=== PATIENT | male | born 1985 | race Two or more races ===

== ENCOUNTER 2022-09-27 03:03 | Emergency (ER) | payer OTHER ==
[~2022-09-27] VITALS: Ht 180.3 cm; Wt 84.1 kg
[~2022-09-27 03:03] MED LIST: GABA-1216 PO
[2022-09-27] MEDS ORDERED: IPRATROPIUM BROMIDE 0.5 MG/2.5 ML NEB SOLUTION NEB ONE (03:15)
[2022-09-27] MEDS ORDERED: MethylPREDNISolone SOD SUCC 125 MG/2 ML VIAL IVP ONE (03:15)
[2022-09-27] MEDS ORDERED: ALBUTEROL SULFATE 2.5 MG/0.5 ML NEB SOLUTION NEB ONE ×2 (03:15→04:45)
[2022-09-27 03:53] LABS: COVID AG,FIA SOURCE NASOPHARYNGEAL
[2022-09-27 03:56] LABS: BASOPHILS % (AUTO) 0.9 % (0.0-2.0); EOSINOPHILS % (AUTO) 8.4 % (1.0-6.0); HEMOGLOBIN 14.7 g/dL (13.5-17.5); LYMPHOCYTES % (AUTO) 33.9 % (22.0-44.0); MEAN CORPUSCULAR HGB CONC 34.1 G/dL (31.0-37.0); MEAN CORPUSCULAR VOLUME 88 fL (80-100); MONOCYTES # (AUTO) 0.6 K/uL (0.1-1.0); MONOCYTES % (AUTO) 6.2 % (2.0-9.0); NEUTROPHILS # (AUTO) 4.5 K/uL (1.8-7.7); NEUTROPHILS % (AUTO) 50.6 % (40.0-70.0); PLATELET COUNT (AUTO) 153 K/uL (150-450); RED BLOOD CELL COUNT(AUTO) 4.89 MIL/uL (4.50-5.90); RED CELL DISTRIBUTION WIDTH 12.3 % (11.5-14.5)
[2022-09-27 04:07] LABS: ANION GAP 10 mmol/L (8-16); CALCIUM, TOTAL 8.5 mg/dL (8.8-10.5); CARBON DIOXIDE 26 mmol/L (22-29); CHLORIDE 104 mmol/L (98-107); CREATININE 0.84 mg/dL (0.60-1.30); GLOMERULAR FILTR. RATE CALC > 60 mL/min (>60); GLUCOSE,RANDOM 102 mg/dL (70-110); POTASSIUM 3.9 mmol/L (3.5-5.1); SODIUM SERUM 140 mmol/L (136-145); UREA NITROGEN, BLOOD 13 mg/dL (7-18)
[2022-09-27 04:14] LABS: INFLUENZA TYPE A NEGATIVE FOR TYPE A (NEGATIVE); INFLUENZA TYPE B NEGATIVE FOR TYPE B (NEGATIVE)
[2022-09-27 04:32] LABS: ALANINE AMINOTRANSFERASE 23 U/L (12-78); ALBUMIN 3.9 g/dL (3.4-5.0); ALKALINE PHOSPHATASE 60 U/L (46-116); ASPARTATE AMINOTRANSFERASE 24 U/L (15-37); BILIRUBIN,TOTAL 1.3 mg/dL (0.1-1.0); CREATINE KINASE, TOTAL ONLY 120 U/L (39-308); PHOSPHORUS 3.5 mg/dL (2.5-4.9); TOTAL PROTEIN, SERUM 7.3 g/dL (6.4-8.2)
[2022-09-27 04:41] LABS: B-TYPE NATRIURETIC PEPTIDE 12 pg/mL (0-100)
[2022-09-27] MEDS ORDERED: MAGNESIUM SULFATE 2 GM in DEXTROSE 5%-WATER 100 ML IV ONE (04:45)
[2022-09-27] MEDS ORDERED: MAGNESIUM SULFATE 2 GM/WATER 50 ML IV ONE (05:00)
[2022-09-27] MEDS ORDERED: PRED-554 PO (05:40)
[2022-09-27 06:22] VITALS: BP 145/80
[2022-09-29] MEDS ORDERED: PRED-554 PO (11:01)
[2022-09-29] MEDS ORDERED: ALBU8HFA IH (11:01)
[2022-09-29] MEDS ORDERED: DOXY-354 PO (11:01)
== END 2022-09-27 06:37 | disposition left against medical advice (07) ==
LOC: EMS 03:04
DX: J45.901 Unspecified asthma with (acute) exacerbation (principal); F41.9 Anxiety disorder, unspecified; F17.210 Nicotine dependence, cigarettes, uncomplicated; F12.90 Cannabis use, unspecified, uncomplicated; K29.70 Gastritis, unspecified, without bleeding; K44.9 Diaphragmatic hernia without obstruction or gangrene; Z90.49 Acquired absence of other specified parts of digestive tract; Z20.822 Contact with and (suspected) exposure to COVID-19
CPT/HCPCS: 99285; 96365; 71045; 96375; 87426; 80053; 82550; 83735; 83880; 84100; 84484; 85025; 87804; 36415; 93005; 94644; J2930; J3475; J7060; J7613

== ENCOUNTER 2023-06-30 12:11 | Emergency (ER) | payer OTHER ==
[~2023-06-30] VITALS: Ht 180.3 cm; Wt 85.0 kg
[~2023-06-30 12:11] MED LIST changes: +ALBU18HF12 IH; +DOXY-354 PO; +PRED-554 PO
[2023-06-30 12:12] VITALS: TEMP 98.3
[2023-06-30] MEDS ORDERED: APIX5TAB PO (12:22)
[2023-06-30] MEDS ORDERED: BECL10.6 IH (12:22)
[2023-06-30 12:50] VITALS: BP 132/89
[2023-06-30] MEDS ORDERED: IPRATROPIUM BROMIDE 0.5 MG/2.5 ML NEB SOLUTION NEB ONE (13:30)
[2023-06-30] MEDS ORDERED: ALBUTEROL SULFATE 2.5 MG/0.5 ML NEB SOLUTION NEB ONE (13:30)
[2023-06-30] MEDS ORDERED: PredniSONE 20 MG TABLET PO ONE (13:30)
[2023-06-30 13:38] VITALS: PULSE 72; RESP 16; O2SAT 100
[2023-06-30 13:42] VITALS: PULSE 72; RESP 16; O2SAT 100
[2023-06-30] MEDS ORDERED: PRED-554 PO (14:26)
== END 2023-06-30 14:34 | disposition home or self-care (01) ==
LOC: EMS 12:17
DX: J45.901 Unspecified asthma with (acute) exacerbation (principal); F41.9 Anxiety disorder, unspecified; J45.909 Unspecified asthma, uncomplicated; F17.210 Nicotine dependence, cigarettes, uncomplicated; Z90.49 Acquired absence of other specified parts of digestive tract; Z98.890 Other specified postprocedural states
CPT/HCPCS: 99283; 71045; 94640; J7512; J7613

== ENCOUNTER 2023-08-23 18:58 | Emergency (ER) | payer OTHER ==
[~2023-08-23] VITALS: Ht 180.3 cm; Wt 86.0 kg
[~2023-08-23 18:58] MED LIST changes: +APIX5TAB PO; +BECL10.6 IH; -DOXY-354 PO; -GABA-1216 PO
[2023-08-23] MEDS: IPRATROPIUM BROMIDE 0.5 MG/2.5 ML NEB SOLUTION NEB ONE (20:18)
[2023-08-23] MEDS: ALBUTEROL SULFATE 2.5 MG/0.5 ML NEB SOLUTION NEB ONE ×2 (20:18→22:23)
[2023-08-23 20:20] VITALS: PULSE 90; RESP 16; O2SAT 96
[2023-08-23 20:32] VITALS: PULSE 94; RESP 18; O2SAT 98
[2023-08-23] MEDS: PredniSONE 20 MG TABLET PO ONE (20:36)
[2023-08-23 21:23] LABS: INFLUENZA A-RTPCR,COMBO NEGATIVE (NEGATIVE); INFLUENZA B-RTPCR,COMBO NEGATIVE (NEGATIVE); RESPIRATORY SYNCYTIAL VRS-PCR NEGATIVE (NEGATIVE); SARS COVID19 RTPCR, COMBO NEGATIVE (NEGATIVE)
[2023-08-23 21:30] VITALS: BP 127/69; PULSE 91; RESP 18; TEMP 97.3
[2023-08-23] MEDS ORDERED: 0.9% SODIUM CHLORIDE 15 ML NEB SOLUTION NEB ONE (21:31)
[2023-08-23] MEDS ORDERED: ALBU0.212 NEB (21:38)
[2023-08-23] MEDS ORDERED: PRED-554 PO (21:38)
== END 2023-08-23 23:15 | disposition home or self-care (01) ==
LOC: EMS 19:01
DX: J45.901 Unspecified asthma with (acute) exacerbation (principal); F41.9 Anxiety disorder, unspecified; F17.210 Nicotine dependence, cigarettes, uncomplicated; Z90.49 Acquired absence of other specified parts of digestive tract; Z98.890 Other specified postprocedural states; Z20.822 Contact with and (suspected) exposure to COVID-19
CPT/HCPCS: 99284; 0241U; 71045; 94640; J7512; J7613

== ENCOUNTER 2023-12-24 12:47 | Emergency (ER) | payer OTHER ==
[~2023-12-24] VITALS: Ht 180.3 cm; Wt 83.0 kg
[~2023-12-24 12:47] MED LIST changes: +ALBU0.212 NEB
[2023-12-24 14:00] LABS: BASOPHILS % (AUTO) 1.1 % (0.0-2.0); EOSINOPHILS % (AUTO) 2.5 % (1.0-6.0); HEMATOCRIT 44.4 % (41-53); HEMOGLOBIN 15.5 g/dL (13.5-17.5); LYMPHOCYTES # (AUTO) 1.8 K/uL (1.0-4.8); LYMPHOCYTES % (AUTO) 29.6 % (22.0-44.0); MEAN CORPUSCULAR HEMOGLOBIN 30.8 pg (26.0-34.0); MEAN CORPUSCULAR HGB CONC 34.9 G/dL (31.0-37.0); MEAN CORPUSCULAR VOLUME 88 fL (80-100); MONOCYTES # (AUTO) 0.4 K/uL (0.1-1.0); MONOCYTES % (AUTO) 6.2 % (2.0-9.0); NEUTROPHILS # (AUTO) 3.7 K/uL (1.8-7.7); NEUTROPHILS % (AUTO) 60.6 % (40.0-70.0); PLATELET COUNT (AUTO) 201 K/uL (150-450); RED BLOOD CELL COUNT(AUTO) 5.03 MIL/uL (4.50-5.90); RED CELL DISTRIBUTION WIDTH 12.4 % (11.5-14.5); WHITE BLOOD COUNT (AUTO) 6.2 K/uL (4.5-11.0)
[2023-12-24 14:02] LABS: ANION GAP 5 mmol/L (8-16); CALCIUM, TOTAL 8.7 mg/dL (8.8-10.5); CARBON DIOXIDE 30 mmol/L (22-29); CHLORIDE 101 mmol/L (98-107); CREATININE 1.01 mg/dL (0.60-1.30); GLOMERULAR FILTR. RATE CALC > 60 mL/min (>60); GLUCOSE,RANDOM 110 mg/dL (70-110); SODIUM SERUM 136 mmol/L (136-145); UREA NITROGEN, BLOOD 12 mg/dL (7-18)
[2023-12-24 14:04] LABS: PROTHROMBIN TIME 10.6 SEC (9.4-11.6)
[2023-12-24 14:55] VITALS: BP 127/76; PULSE 72; RESP 18; TEMP 97.9
== END 2023-12-24 19:13 | disposition home or self-care (01) ==
LOC: EMS 12:47
DX: S16.1XXA Strain of muscle, fascia and tendon at neck level, initial encounter (principal); R51.9 Headache, unspecified; F17.210 Nicotine dependence, cigarettes, uncomplicated; J45.909 Unspecified asthma, uncomplicated; X58.XXXA Exposure to other specified factors, initial encounter; Y93.89 Activity, other specified; Y92.89 Other specified places as the place of occurrence of the external cause; Y99.8 Other external cause status
CPT/HCPCS: 70450; 80048; 85025; 85610; 99284

== ENCOUNTER 2023-12-25 12:06 | Emergency (ER) | payer OTHER ==
[~2023-12-25] VITALS: Ht 180.3 cm; Wt 81.8 kg
[2023-12-25 12:13] VITALS: TEMP 98
[2023-12-25 15:47] VITALS: BP 126/65; PULSE 77; RESP 18
== END 2023-12-25 15:52 | disposition home or self-care (01) ==
LOC: EMS 12:06
DX: S16.1XXA Strain of muscle, fascia and tendon at neck level, initial encounter (principal); F41.9 Anxiety disorder, unspecified; J45.909 Unspecified asthma, uncomplicated; Z90.49 Acquired absence of other specified parts of digestive tract; X58.XXXA Exposure to other specified factors, initial encounter; Y93.89 Activity, other specified; Y92.89 Other specified places as the place of occurrence of the external cause; Y99.8 Other external cause status
CPT/HCPCS: 72125; 99284; Z7502

== ENCOUNTER 2024-01-01 21:09 | Emergency (ER) | payer OTHER ==
[~2024-01-01] VITALS: Ht 180.3 cm; Wt 86.8 kg
[~2024-01-01 21:09] MED LIST changes: -ALBU0.212 NEB; -ALBU18HF12 IH; -BECL10.6 IH; -PRED-554 PO
[2024-01-01 21:18] VITALS: TEMP 98.1
[2024-01-02 01:51] VITALS: BP 146/72; PULSE 88; RESP 18
== END 2024-01-02 01:52 | disposition home or self-care (01) ==
LOC: EMS 21:09
DX: S13.4XXA Sprain of ligaments of cervical spine, initial encounter (principal); M79.18 Myalgia, other site; F41.9 Anxiety disorder, unspecified; J45.909 Unspecified asthma, uncomplicated; F17.210 Nicotine dependence, cigarettes, uncomplicated; Z90.49 Acquired absence of other specified parts of digestive tract; V43.92XA Unspecified car occupant injured in collision with other type car in traffic accident, initial encounter; W22.10XA Striking against or struck by unspecified automobile airbag, initial encounter; Y93.89 Activity, other specified; Y92.89 Other specified places as the place of occurrence of the external cause; Y99.8 Other external cause status
CPT/HCPCS: 71250; 72192; 74150; 74176; 99284; Z7502

== ENCOUNTER 2024-05-16 07:55 | Emergency (ER) | payer OTHER ==
[~2024-05-16] VITALS: Ht 180.3 cm; Wt 86.4 kg
[2024-05-16 08:01] VITALS: TEMP 97.6
[2024-05-16 10:06] VITALS: BP 120/62; PULSE 87; RESP 14; O2SAT 98
== END 2024-05-16 10:07 | disposition home or self-care (01) ==
LOC: EMS 07:55
DX: S56.911A Strain of unspecified muscles, fascia and tendons at forearm level, right arm, initial encounter (principal); M25.531 Pain in right wrist; J45.909 Unspecified asthma, uncomplicated; F17.290 Nicotine dependence, other tobacco product, uncomplicated; Z79.01 Long term (current) use of anticoagulants; Z87.19 Personal history of other diseases of the digestive system; Z90.49 Acquired absence of other specified parts of digestive tract; W22.8XXA Striking against or struck by other objects, initial encounter; Y93.89 Activity, other specified; Y92.89 Other specified places as the place of occurrence of the external cause; Y99.0 Civilian activity done for income or pay
CPT/HCPCS: 99284; 73090-TC; 73110-TC; 73130-TC; Z7502

== ENCOUNTER 2024-08-16 18:53 | Emergency (ER) | payer OTHER ==
[~2024-08-16] VITALS: Ht 175.3 cm; Wt 77.3 kg
[2024-08-16 18:58] VITALS: BP 132/84; PULSE 87; RESP 16; TEMP 98; O2SAT 98
== END 2024-08-16 20:12 | disposition left against medical advice (07) ==
LOC: EMS 18:53
DX: R09.81 Nasal congestion (principal); Z53.21 Procedure and treatment not carried out due to patient leaving prior to being seen by health care provider